=== PATIENT | male | born 1965 | race American Indian/Alaskan Native ===

== ENCOUNTER 2020-09-06 11:54 | Inpatient (IN) | payer BC, OTHER ==
[2020-09-06] MEDS ORDERED: SODIUM CHLORIDE 0.9% 500 ML INFUS.BAG IV ONE (13:05)
[2020-09-06 13:07] LABS: BASO % 0.4 % (0-2.0); EOS % 1.1 % (0-4.5); HEMATOCRIT 29.3 % (35.4-49); LYMPH % 7.8 % (8-40); MCH 21.2 pg (25.7-33.7); MCHC 30.7 g/dl (32.0-35.9); MEAN CELL VOLUME 69.2 fl (80-96); MEAN PLT VOLUME 7.1 fl (7.5-11.1); MONO % 10.1 % (3.8-10.2); NEUT % 80.6 % (42.8-82.8); PLATELET COUNT 649 K/MM3 (134-434); RBC 4.24 M/mm3 (4.00-5.60); RDW 19.6 % (11.9-15.9); WHITE BLOOD COUNT 11.3 K/mm3 (4.0-10.0)
[2020-09-06 13:33] LABS: POTASSIUM 4.1 mmol/L (3.5-5.1)
[2020-09-06 13:35] LABS: CALCIUM 9.1 mg/dL (8.5-10.1)
[2020-09-06 13:36] LABS: ALBUMIN 2.9 g/dl (3.4-5.0); BLOOD UREA NITROGEN 14.4 mg/dL (7-18)
[2020-09-06 13:40] LABS: BILIRUBIN,TOTAL 0.5 mg/dL (0.2-1); CREATININE 1.8 mg/dL (0.55-1.3); TOT PROT 6.7 g/dl (6.4-8.2)
[2020-09-06] MEDS ORDERED: SODIUM CHLORIDE 1,000 ML IV STA (13:55)
[2020-09-06 14:58] LABS: ANISOCYTOSIS 2+; OVALOCYTE 1+; TARGET CELLS 1+
[2020-09-06] MEDS ORDERED: CIPROFLOXACIN 400 MG/D5W 400 MG/200 ML IVPB IVPB ONE (16:17)
[2020-09-06] MEDS: D5-1/2NS+20 MEQ KCL - 20 MEQ/1,000 ML INFUS.BAG IV SCH (17:15)
[2020-09-06 17:18] LABS: POTASSIUM 3.7 mmol/L (3.5-5.1)
[2020-09-06 17:19] LABS: CALCIUM 8.5 mg/dL (8.5-10.1)
[2020-09-06 17:20] LABS: BLOOD UREA NITROGEN 15.1 mg/dL (7-18)
[2020-09-06] MEDS ORDERED: FLU VACCINE (FLULAVAL) PF 60 MCG/0.5 ML SYRINGE 2020-2021 IM ONE (20:36)
[2020-09-06] MEDS: PIPERACILLIN/TAZOB 3.375 GM 3.375 GM in DEXTROSE 5%-WATER - 50 ML IVPB SCH (22:22)
[2020-09-06] MEDS: HEPARIN NA (PORCINE) 5,000 UNITS/ML 1ML VIAL SQ SCH (22:23)
[2020-09-07] MEDS ORDERED: PIPERACILLIN/TAZOBACTAM 3.375 GM VIAL IVPB ONE ×3 (00:58→17:49)
[2020-09-07] MEDS ORDERED: DEXTROSE 5%-WATER - 50 ML IVPB ONE ×3 (00:59→17:49)
[2020-09-07] MEDS: PIPERACILLIN/TAZOB 3.375 GM 3.375 GM in DEXTROSE 5%-WATER - 50 ML IVPB SCH ×4 (01:06→17:52)
[2020-09-07] MEDS: D5-1/2NS+20 MEQ KCL - 20 MEQ/1,000 ML INFUS.BAG IV SCH ×4 (02:56→22:56)
[2020-09-07 08:38] LABS: BASO % 0.7 % (0-2.0); EOS % 2.6 % (0-4.5); HEMATOCRIT 24.2 % (35.4-49); HEMOGLOBIN 7.6 GM/dL (11.7-16.9); LYMPH % 14.2 % (8-40); MCH 21.4 pg (25.7-33.7); MCHC 31.5 g/dl (32.0-35.9); MEAN CELL VOLUME 67.8 fl (80-96); MEAN PLT VOLUME 7.3 fl (7.5-11.1); MONO % 11.9 % (3.8-10.2); NEUT % 70.6 % (42.8-82.8); PLATELET COUNT 494 K/MM3 (134-434); RBC 3.57 M/mm3 (4.00-5.60); WHITE BLOOD COUNT 7.6 K/mm3 (4.0-10.0)
[2020-09-07 08:52] LABS: INR 1.51 (0.83-1.09)
[2020-09-07 08:53] LABS: POTASSIUM 3.9 mmol/L (3.5-5.1)
[2020-09-07 09:00] LABS: ALBUMIN 2.4 g/dl (3.4-5.0); BLOOD UREA NITROGEN 13.9 mg/dL (7-18); CALCIUM 8.3 mg/dL (8.5-10.1); MAGNESIUM 1.9 mg/dL (1.8-2.4)
[2020-09-07 09:02] LABS: CREATININE 1.5 mg/dL (0.55-1.3); PHOSPHOROUS 3.2 mg/dL (2.5-4.9)
[2020-09-07 09:03] LABS: BILIRUBIN,TOTAL 0.6 mg/dL (0.2-1); TOT PROT 5.5 g/dl (6.4-8.2)
[2020-09-07] MEDS ORDERED: PT OWN MED DRAWER 7, Y5N ONE ×2 (09:46→10:42)
[2020-09-07] MEDS: HEPARIN NA (PORCINE) 5,000 UNITS/ML 1ML VIAL SQ SCH ×2 (10:07→21:08)
[2020-09-07] MEDS: NEBIVOLOL 10 MG TABLET (FP) PO SCH (13:08)
[2020-09-07] MEDS: PANTOPRAZOLE SODIUM 40 MG VIAL IVPUSH SCH (17:51)
[2020-09-08] MEDS ORDERED: PT OWN MED DRAWER 7, Y5N ONE (00:53)
[2020-09-08] MEDS ORDERED: DEXTROSE 5%-WATER - 50 ML IVPB ONE ×2 (00:59→09:04)
[2020-09-08] MEDS ORDERED: PIPERACILLIN/TAZOBACTAM 3.375 GM VIAL IVPB ONE ×2 (00:59→09:04)
[2020-09-08] MEDS: PIPERACILLIN/TAZOB 3.375 GM 3.375 GM in DEXTROSE 5%-WATER - 50 ML IVPB SCH ×2 (01:20→09:53)
[2020-09-08 07:56] LABS: POTASSIUM 3.6 mmol/L (3.5-5.1)
[2020-09-08 07:59] LABS: CALCIUM 8.6 mg/dL (8.5-10.1)
[2020-09-08 08:00] LABS: ALBUMIN 2.5 g/dl (3.4-5.0); BLOOD UREA NITROGEN 6.6 mg/dL (7-18)
[2020-09-08 08:03] LABS: CREATININE 1.2 mg/dL (0.55-1.3)
[2020-09-08 08:05] LABS: BILIRUBIN,TOTAL 0.5 mg/dL (0.2-1)
[2020-09-08 08:06] LABS: TOT PROT 5.9 g/dl (6.4-8.2)
[2020-09-08 08:28] LABS: BASO % 0.8 % (0-2.0); EOS % 3.1 % (0-4.5); HEMOGLOBIN 7.9 GM/dL (11.7-16.9); LYMPH % 10.4 % (8-40); MCH 21.3 pg (25.7-33.7); MCHC 31.5 g/dl (32.0-35.9); MEAN CELL VOLUME 67.6 fl (80-96); MEAN PLT VOLUME 7.6 fl (7.5-11.1); MONO % 10.1 % (3.8-10.2); NEUT % 75.6 % (42.8-82.8); PLATELET COUNT 517 K/MM3 (134-434); RBC 3.71 M/mm3 (4.00-5.60); RDW 18.9 % (11.9-15.9); WHITE BLOOD COUNT 8.6 K/mm3 (4.0-10.0)
[2020-09-08] MEDS: HYDROmorphone HCl 2 MG/ML VIAL IVPUSH PRN ×2 (09:49→21:29)
[2020-09-08] MEDS: PANTOPRAZOLE SODIUM 40 MG VIAL IVPUSH SCH (09:54)
[2020-09-08] MEDS: HEPARIN NA (PORCINE) 5,000 UNITS/ML 1ML VIAL SQ SCH ×2 (09:54→22:52)
[2020-09-08] MEDS: NEBIVOLOL 10 MG TABLET (FP) PO SCH (09:54)
[2020-09-08] MEDS ORDERED: DEXTROSE 5%-WATER 100 ML IVPB ONE (16:23)
[2020-09-08] MEDS: CEFTRIAXONE 2 GM in DEXTROSE 5%-WATER 100 ML IVPB SCH (16:28)
[2020-09-08 17:37] LABS: EPI CELLS 20 /uL (0-25.1); HYALINE CASTS 5 /uL (0-3.1); PH,URINE 5.5 (5.0-8.0); URINE APPEARANCE CLOUDY; URINE BACTERIA 33 /uL (0-1359); URINE BILIRUBIN NEGATIVE (NEGATIVE); URINE COLOR DK YELLOW; URINE GLUCOSE (UA) NEGATIVE (NEGATIVE); URINE KETONE TRACE (NEGATIVE); URINE LEUK ESTERASE 1+ (NEGATIVE); URINE NITRITE NEGATIVE (NEGATIVE); URINE PROTEIN 2+ (NEGATIVE); URINE RBC 36 /uL (0-23.9); URINE UROBILINOGEN 0.2 mg/dL (0.2-1.0); URINE WBC 15 /uL (0-25.8)
[2020-09-08] MEDS: D5-1/2NS+20 MEQ KCL - 20 MEQ/1,000 ML INFUS.BAG IV SCH ×2 (19:34→22:31)
[2020-09-09] MEDS: HYDROmorphone HCl 2 MG/ML VIAL IVPUSH PRN ×2 (07:30→15:13)
[2020-09-09 08:11] LABS: BASO % 0.8 % (0-2.0); EOS % 2.7 % (0-4.5); HEMATOCRIT 25.3 % (35.4-49); HEMOGLOBIN 7.8 GM/dL (11.7-16.9); LYMPH % 16.4 % (8-40); MCHC 30.8 g/dl (32.0-35.9); MEAN CELL VOLUME 68.4 fl (80-96); MEAN PLT VOLUME 7.7 fl (7.5-11.1); MONO % 12.3 % (3.8-10.2); NEUT % 67.8 % (42.8-82.8); PLATELET COUNT 528 K/MM3 (134-434); RDW 19.1 % (11.9-15.9); WHITE BLOOD COUNT 8.3 K/mm3 (4.0-10.0)
[2020-09-09] MEDS ORDERED: DEXTROSE 5%-WATER 100 ML IVPB ONE (09:18)
[2020-09-09] MEDS ORDERED: PT OWN MED DRAWER 7, Y5N ONE (09:18)
[2020-09-09] MEDS: CEFTRIAXONE 2 GM in DEXTROSE 5%-WATER 100 ML IVPB SCH (09:29)
[2020-09-09] MEDS: HEPARIN NA (PORCINE) 5,000 UNITS/ML 1ML VIAL SQ SCH ×2 (09:29→22:30)
[2020-09-09] MEDS: NEBIVOLOL 10 MG TABLET (FP) PO SCH (09:29)
[2020-09-09] MEDS: PANTOPRAZOLE SODIUM 40 MG VIAL IVPUSH SCH (09:29)
[2020-09-09 10:15] LABS: POTASSIUM 3.8 mmol/L (3.5-5.1)
[2020-09-09 10:24] LABS: CALCIUM 8.8 mg/dL (8.5-10.1)
[2020-09-09 10:25] LABS: ALBUMIN 2.3 g/dl (3.4-5.0)
[2020-09-09 10:28] LABS: CREATININE 1.2 mg/dL (0.55-1.3)
[2020-09-09 10:29] LABS: BILIRUBIN,TOTAL 0.5 mg/dL (0.2-1)
[2020-09-09 10:30] LABS: TOT PROT 5.7 g/dl (6.4-8.2)
[2020-09-09] MEDS: D5-1/2NS+20 MEQ KCL - 20 MEQ/1,000 ML INFUS.BAG IV SCH (18:19)
[2020-09-09] MEDS ORDERED: HYDROmorphone HCl 2 MG/ML VIAL IVPUSH PRN (22:39)
[2020-09-09] MEDS: HYDROmorphone HCl 2 MG/ML VIAL IVPB PRN (22:43)
[2020-09-10] MEDS: D5-1/2NS+20 MEQ KCL - 20 MEQ/1,000 ML INFUS.BAG IV SCH ×2 (01:45→17:33)
[2020-09-10] MEDS: HYDROmorphone HCl 2 MG/ML VIAL IVPB PRN ×4 (07:34→21:46)
[2020-09-10 08:20] LABS: BASO % 0.7 % (0-2.0); EOS % 2.5 % (0-4.5); HEMATOCRIT 24.6 % (35.4-49); HEMOGLOBIN 7.6 GM/dL (11.7-16.9); LYMPH % 9.2 % (8-40); MCH 20.8 pg (25.7-33.7); MEAN CELL VOLUME 67.2 fl (80-96); MEAN PLT VOLUME 7.7 fl (7.5-11.1); MONO % 11.3 % (3.8-10.2); NEUT % 76.3 % (42.8-82.8); PLATELET COUNT 469 K/MM3 (134-434); RBC 3.66 M/mm3 (4.00-5.60); RDW 19.3 % (11.9-15.9); WHITE BLOOD COUNT 7.4 K/mm3 (4.0-10.0)
[2020-09-10 08:25] LABS: POTASSIUM 4.4 mmol/L (3.5-5.1)
[2020-09-10 08:28] LABS: ALBUMIN 2.2 g/dl (3.4-5.0); BLOOD UREA NITROGEN 3.7 mg/dL (7-18); CALCIUM 8.5 mg/dL (8.5-10.1)
[2020-09-10 08:33] LABS: BILIRUBIN,TOTAL 0.2 mg/dL (0.2-1); TOT PROT 5.5 g/dl (6.4-8.2)
[2020-09-10] MEDS ORDERED: PT OWN MED DRAWER 7, Y5N ONE (09:24)
[2020-09-10] MEDS ORDERED: DEXTROSE 5%-WATER 100 ML IVPB ONE (09:25)
[2020-09-10] MEDS: HEPARIN NA (PORCINE) 5,000 UNITS/ML 1ML VIAL SQ SCH ×2 (09:31→21:43)
[2020-09-10] MEDS: NEBIVOLOL 10 MG TABLET (FP) PO SCH (09:31)
[2020-09-10] MEDS: CEFTRIAXONE 2 GM in DEXTROSE 5%-WATER 100 ML IVPB SCH (09:31)
[2020-09-10] MEDS: PANTOPRAZOLE SODIUM 40 MG VIAL IVPUSH SCH (09:31)
[2020-09-10] MEDS: SIMETHICONE 80 MG TAB.CHEW (FP) PO PRN ×2 (09:32→17:45)
[2020-09-10 10:48] LABS: ANISOCYTOSIS 1+; MACROCYTOSIS 0; OVALOCYTE 1+; PLATELET ESTIMATE NORMAL
[2020-09-10 11:51] LABS: INR 1.8 (0.83-1.09); PROTHROMBIN TIME (PATIENT) 21.8 SEC (9.7-13.0)
[2020-09-10] MEDS ORDERED: FERRIC CARBOXYMALTOSE 750 MG in SODIUM CHLORIDE 250 ML IVPB ONE (15:44)
[2020-09-11] MEDS ORDERED: HYDROmorphone HCl 2 MG/ML VIAL IVPB ONE (04:37)
[2020-09-11] MEDS: D5-1/2NS+20 MEQ KCL - 20 MEQ/1,000 ML INFUS.BAG IV SCH (04:45)
[2020-09-11] MEDS ORDERED: DEXTROSE 5%-WATER 100 ML IVPB ONE (09:05)
[2020-09-11] MEDS: NEBIVOLOL 10 MG TABLET (FP) PO SCH (09:18)
[2020-09-11] MEDS: FERROUS SO4 325 MG TABLET (FP) PO SCH (09:18)
[2020-09-11] MEDS: HEPARIN NA (PORCINE) 5,000 UNITS/ML 1ML VIAL SQ SCH ×2 (10:14→22:09)
[2020-09-11] MEDS: CEFTRIAXONE 2 GM in DEXTROSE 5%-WATER 100 ML IVPB SCH (10:14)
[2020-09-11 11:18] LABS: BASO % 0.7 % (0-2.0); EOS % 1.7 % (0-4.5); HEMATOCRIT 24.7 % (35.4-49); HEMOGLOBIN 7.8 GM/dL (11.7-16.9); LYMPH % 7.6 % (8-40); MCH 21.4 pg (25.7-33.7); MCHC 31.6 g/dl (32.0-35.9); MEAN CELL VOLUME 67.6 fl (80-96); MEAN PLT VOLUME 7.7 fl (7.5-11.1); MONO % 10.8 % (3.8-10.2); NEUT % 79.2 % (42.8-82.8); PLATELET COUNT 491 K/MM3 (134-434); RBC 3.65 M/mm3 (4.00-5.60); WHITE BLOOD COUNT 9.5 K/mm3 (4.0-10.0)
[2020-09-11 11:29] LABS: POTASSIUM 3.9 mmol/L (3.5-5.1)
[2020-09-11 11:31] LABS: CALCIUM 8.5 mg/dL (8.5-10.1)
[2020-09-11 11:32] LABS: ALBUMIN 2.3 g/dl (3.4-5.0)
[2020-09-11 11:37] LABS: BILIRUBIN,TOTAL 0.1 mg/dL (0.2-1); TOT PROT 5.5 g/dl (6.4-8.2)
[2020-09-11 11:45] LABS: BLOOD UREA NITROGEN 2.4 mg/dL (7-18)
[2020-09-11] MEDS: PANTOPRAZOLE SODIUM 40 MG VIAL IVPUSH SCH (12:04)
[2020-09-11] MEDS: HYDROmorphone HCl 2 MG/ML VIAL IVPB PRN ×3 (12:06→22:08)
[2020-09-11] MEDS: SIMETHICONE 80 MG TAB.CHEW (FP) PO SCH ×2 (12:09→18:03)
[2020-09-11] MEDS: AMINO ACIDS 4.25%/D5W 1,000 ML IV SCH ×2 (12:09→22:20)
[2020-09-11] MEDS: MULTIVIT INJ. ADULT COMBO WITH VIT K 1 COMBO 10 ML VIAL IV SCH (12:10)
[2020-09-11] MEDS ORDERED: ACETAMINOPHEN 325 MG TABLET (FP) PO PRN (15:02)
[2020-09-11] MEDS ORDERED: PHYTONADIONE 10 MG/1 ML AMP IM ONE (16:09)
[2020-09-12] MEDS: SIMETHICONE 80 MG TAB.CHEW (FP) PO SCH ×5 (00:59→23:41)
[2020-09-12] MEDS: HYDROmorphone HCl 2 MG/ML VIAL IVPB PRN ×3 (02:03→11:34)
[2020-09-12] MEDS: AMINO ACIDS 4.25%/D5W 1,000 ML IV SCH ×2 (03:00→11:18)
[2020-09-12 08:51] LABS: EOS % 2.4 % (0-4.5); HEMOGLOBIN 7.6 GM/dL (11.7-16.9); LYMPH % 9.1 % (8-40); MCH 21.6 pg (25.7-33.7); MCHC 31.8 g/dl (32.0-35.9); MEAN CELL VOLUME 67.9 fl (80-96); MEAN PLT VOLUME 7.9 fl (7.5-11.1); MONO % 12.4 % (3.8-10.2); NEUT % 75.1 % (42.8-82.8); PLATELET COUNT 462 K/MM3 (134-434); RBC 3.53 M/mm3 (4.00-5.60); RDW 19.3 % (11.9-15.9); WHITE BLOOD COUNT 9.4 K/mm3 (4.0-10.0)
[2020-09-12 09:14] LABS: POTASSIUM 3.4 mmol/L (3.5-5.1)
[2020-09-12 09:17] LABS: CALCIUM 7.9 mg/dL (8.5-10.1)
[2020-09-12 09:18] LABS: ALBUMIN 2.1 g/dl (3.4-5.0); BLOOD UREA NITROGEN 4.9 mg/dL (7-18)
[2020-09-12 09:21] LABS: CREATININE 0.9 mg/dL (0.55-1.3)
[2020-09-12 09:22] LABS: BILIRUBIN,TOTAL 0.2 mg/dL (0.2-1); TOT PROT 5.2 g/dl (6.4-8.2)
[2020-09-12] MEDS ORDERED: PHYTONADIONE 5 MG TABLET PO ONE (09:26)
[2020-09-12] MEDS ORDERED: POTASSIUM CHLORIDE TABS 20 MEQ TABLET.ER (FP) PO ONE (09:30)
[2020-09-12] MEDS ORDERED: DEXTROSE 5%-WATER 100 ML IVPB ONE (10:55)
[2020-09-12] MEDS: HEPARIN NA (PORCINE) 5,000 UNITS/ML 1ML VIAL SQ SCH ×2 (11:06→21:31)
[2020-09-12] MEDS: PANTOPRAZOLE SODIUM 40 MG VIAL IVPUSH SCH ×2 (11:07→21:32)
[2020-09-12] MEDS: CEFTRIAXONE 2 GM in DEXTROSE 5%-WATER 100 ML IVPB SCH (11:07)
[2020-09-12] MEDS ORDERED: PT OWN MED DRAWER 7, Y5N ONE (11:10)
[2020-09-12] MEDS: MULTIVIT INJ. ADULT COMBO WITH VIT K 1 COMBO 10 ML VIAL IV SCH (11:18)
[2020-09-12] MEDS: FERROUS SO4 325 MG TABLET (FP) PO SCH (11:18)
[2020-09-12] MEDS: NEBIVOLOL 10 MG TABLET (FP) PO SCH (11:19)
[2020-09-12] MEDS ORDERED: ACETAMINOPHEN 1000 MG/100 ML VIAL (NON FORMULARY) IVPB PRN (13:35)
[2020-09-12] MEDS: MORPHINE SULFATE 2 MG/ML VIAL IVPUSH PRN ×3 (13:48→22:09)
[2020-09-12] MEDS: POTASSIUM CHLORIDE 20 MEQ in AMINO ACIDS 4.25%/D5W 1,000 ML IVPB SCH (17:45)
[2020-09-13] MEDS: MORPHINE SULFATE 2 MG/ML VIAL IVPUSH PRN ×2 (03:51→10:29)
[2020-09-13] MEDS: POTASSIUM CHLORIDE 20 MEQ in AMINO ACIDS 4.25%/D5W 1,000 ML IVPB SCH ×2 (05:02→20:14)
[2020-09-13] MEDS: SIMETHICONE 80 MG TAB.CHEW (FP) PO SCH ×3 (05:03→18:01)
[2020-09-13 09:39] LABS: BASO % 0.7 % (0-2.0); EOS % 3.3 % (0-4.5); HEMATOCRIT 25.1 % (35.4-49); HEMOGLOBIN 7.8 GM/dL (11.7-16.9); LYMPH % 9.7 % (8-40); MCH 21.4 pg (25.7-33.7); MEAN CELL VOLUME 69.1 fl (80-96); MONO % 11.2 % (3.8-10.2); NEUT % 75.1 % (42.8-82.8); PLATELET COUNT 468 K/MM3 (134-434); RBC 3.63 M/mm3 (4.00-5.60); RDW 19.2 % (11.9-15.9); WHITE BLOOD COUNT 10.6 K/mm3 (4.0-10.0)
[2020-09-13] MEDS ORDERED: ACETAMINOPHEN 1000 MG/100 ML VIAL (NON FORMULARY) IVPB PRN (09:40)
[2020-09-13 09:49] LABS: INR 1.73 (0.83-1.09); PROTHROMBIN TIME (PATIENT) 20.6 SEC (9.7-13.0)
[2020-09-13] MEDS ORDERED: DEXTROSE 5%-WATER 100 ML IVPB ONE (10:01)
[2020-09-13] MEDS: FERROUS SO4 325 MG TABLET (FP) PO SCH (10:06)
[2020-09-13] MEDS: HEPARIN NA (PORCINE) 5,000 UNITS/ML 1ML VIAL SQ SCH ×2 (10:07→21:59)
[2020-09-13] MEDS: MULTIVIT INJ. ADULT COMBO WITH VIT K 1 COMBO 10 ML VIAL IV SCH (10:09)
[2020-09-13] MEDS: PANTOPRAZOLE SODIUM 40 MG VIAL IVPUSH SCH ×2 (10:13→21:59)
[2020-09-13] MEDS: CEFTRIAXONE 2 GM in DEXTROSE 5%-WATER 100 ML IVPB SCH (10:19)
[2020-09-13 10:30] LABS: POTASSIUM 3.5 mmol/L (3.5-5.1)
[2020-09-13 10:32] LABS: ALBUMIN 2.2 g/dl (3.4-5.0); BLOOD UREA NITROGEN 8.4 mg/dL (7-18); CALCIUM 8.1 mg/dL (8.5-10.1)
[2020-09-13 10:35] LABS: CREATININE 0.9 mg/dL (0.55-1.3)
[2020-09-13 10:37] LABS: TOT PROT 5.4 g/dl (6.4-8.2)
[2020-09-13 10:45] LABS: BILIRUBIN,TOTAL 0.2 mg/dL (0.2-1)
[2020-09-13 11:06] LABS: ANISOCYTOSIS 2+; MACROCYTOSIS 0; PLATELET ESTIMATE INCREASED
[2020-09-13] MEDS: NEBIVOLOL 10 MG TABLET (FP) PO SCH (12:32)
[2020-09-13] MEDS: morphine SULFATE 4 MG/ML VIAL IVPUSH PRN ×3 (13:42→21:59)
[2020-09-14] MEDS: SIMETHICONE 80 MG TAB.CHEW (FP) PO SCH ×5 (00:01→23:08)
[2020-09-14] MEDS: POTASSIUM CHLORIDE 20 MEQ in AMINO ACIDS 4.25%/D5W 1,000 ML IVPB SCH ×4 (02:21→23:08)
[2020-09-14] MEDS: morphine SULFATE 4 MG/ML VIAL IVPUSH PRN ×4 (03:28→20:08)
[2020-09-14 08:18] LABS: BASO % 1.1 % (0-2.0); EOS % 3.2 % (0-4.5); HEMATOCRIT 26.5 % (35.4-49); HEMOGLOBIN 8.2 GM/dL (11.7-16.9); LYMPH % 8.7 % (8-40); MCH 21.5 pg (25.7-33.7); MEAN CELL VOLUME 69.6 fl (80-96); MEAN PLT VOLUME 7.8 fl (7.5-11.1); PLATELET COUNT 528 K/MM3 (134-434); RDW 19.8 % (11.9-15.9); WHITE BLOOD COUNT 10.8 K/mm3 (4.0-10.0)
[2020-09-14 08:21] LABS: INR 1.57 (0.83-1.09); PROTHROMBIN TIME (PATIENT) 19.1 SEC (9.7-13.0)
[2020-09-14 08:23] LABS: ACTIVATED PTT 26.4 SECONDS (25.2-36.5)
[2020-09-14 08:41] LABS: POTASSIUM 3.9 mmol/L (3.5-5.1)
[2020-09-14 08:45] LABS: ALBUMIN 2.1 g/dl (3.4-5.0); BLOOD UREA NITROGEN 12.1 mg/dL (7-18); CALCIUM 8.3 mg/dL (8.5-10.1)
[2020-09-14 08:48] LABS: CREATININE 1.1 mg/dL (0.55-1.3)
[2020-09-14 08:50] LABS: BILIRUBIN,TOTAL 0.4 mg/dL (0.2-1); TOT PROT 5.4 g/dl (6.4-8.2)
[2020-09-14] MEDS ORDERED: DEXTROSE 5%-WATER 100 ML IVPB ONE (09:34)
[2020-09-14] MEDS: CEFTRIAXONE 2 GM in DEXTROSE 5%-WATER 100 ML IVPB SCH (09:47)
[2020-09-14] MEDS: PANTOPRAZOLE SODIUM 40 MG VIAL IVPUSH SCH ×2 (09:51→21:25)
[2020-09-14] MEDS: MULTIVIT INJ. ADULT COMBO WITH VIT K 1 COMBO 10 ML VIAL IV SCH (09:52)
[2020-09-14] MEDS: HEPARIN NA (PORCINE) 5,000 UNITS/ML 1ML VIAL SQ SCH (09:56)
[2020-09-14] MEDS: FERROUS SO4 325 MG TABLET (FP) PO SCH (09:56)
[2020-09-14] MEDS: NEBIVOLOL 10 MG TABLET (FP) PO SCH (09:57)
[2020-09-14 12:22] LABS: ANISOCYTOSIS 2+
[2020-09-14] MEDS: DICYCLOMINE HCL 10 MG CAPSULE PO SCH ×2 (17:06→21:25)
[2020-09-15] MEDS: morphine SULFATE 4 MG/ML VIAL IVPUSH PRN ×4 (01:08→20:32)
[2020-09-15] MEDS: POTASSIUM CHLORIDE 20 MEQ in AMINO ACIDS 4.25%/D5W 1,000 ML IVPB SCH ×2 (01:44→13:05)
[2020-09-15] MEDS: SIMETHICONE 80 MG TAB.CHEW (FP) PO SCH ×3 (05:08→17:35)
[2020-09-15] MEDS: MORPHINE SULFATE 2 MG/ML VIAL IVPUSH PRN ×2 (08:13→17:36)
[2020-09-15 08:41] LABS: BASO % 0.6 % (0-2.0); EOS % 4.2 % (0-4.5); HEMATOCRIT 25.2 % (35.4-49); LYMPH % 11.3 % (8-40); MCH 22.3 pg (25.7-33.7); MCHC 31.6 g/dl (32.0-35.9); MEAN CELL VOLUME 70.8 fl (80-96); MONO % 13.7 % (3.8-10.2); NEUT % 70.2 % (42.8-82.8); PLATELET COUNT 515 K/MM3 (134-434); RBC 3.57 M/mm3 (4.00-5.60); RDW 19.6 % (11.9-15.9); WHITE BLOOD COUNT 11.3 K/mm3 (4.0-10.0)
[2020-09-15 08:45] LABS: POTASSIUM 3.5 mmol/L (3.5-5.1)
[2020-09-15] MEDS ORDERED: SODIUM PHOSPHATE/NA BIPHOS 133 ML ENEMA RC ONE (09:00)
[2020-09-15 09:03] LABS: CALCIUM 8.1 mg/dL (8.5-10.1)
[2020-09-15 09:04] LABS: BLOOD UREA NITROGEN 15.5 mg/dL (7-18)
[2020-09-15 09:06] LABS: CREATININE 1.1 mg/dL (0.55-1.3)
[2020-09-15 09:08] LABS: BILIRUBIN,TOTAL 0.8 mg/dL (0.2-1); TOT PROT 5.2 g/dl (6.4-8.2)
[2020-09-15] MEDS ORDERED: PT OWN MED DRAWER 7, Y5N ONE ×3 (09:25→21:26)
[2020-09-15] MEDS ORDERED: DEXTROSE 5%-WATER 100 ML IVPB ONE (09:26)
[2020-09-15] MEDS: FERROUS SO4 325 MG TABLET (FP) PO SCH (09:30)
[2020-09-15] MEDS: DICYCLOMINE HCL 10 MG CAPSULE PO SCH ×2 (09:30→21:38)
[2020-09-15] MEDS: CEFTRIAXONE 2 GM in DEXTROSE 5%-WATER 100 ML IVPB SCH (09:31)
[2020-09-15] MEDS: PANTOPRAZOLE SODIUM 40 MG VIAL IVPUSH SCH ×2 (09:32→21:38)
[2020-09-15] MEDS: NEBIVOLOL 10 MG TABLET (FP) PO SCH (09:32)
[2020-09-15] MEDS: MULTIVIT INJ. ADULT COMBO WITH VIT K 1 COMBO 10 ML VIAL IV SCH (13:06)
[2020-09-15] MEDS ORDERED: PHYTONADIONE 10 MG/1 ML AMP SQ ONE (14:15)
[2020-09-15] MEDS ORDERED: IRON SUCROSE INJECTION 300 MG in SODIUM CHLORIDE 235 ML IVPB ONE (15:00)
[2020-09-15] MEDS: VANCOMYCIN 250 MG/5 ML ORAL SOLUTION PO SCH (17:35)
[2020-09-15] MEDS: HEPARIN NA (PORCINE) 5,000 UNITS/ML 1ML VIAL SQ SCH (22:27)
[2020-09-16] MEDS: VANCOMYCIN 250 MG/5 ML ORAL SOLUTION PO SCH ×4 (00:39→17:15)
[2020-09-16] MEDS: SIMETHICONE 80 MG TAB.CHEW (FP) PO SCH ×4 (00:40→17:16)
[2020-09-16] MEDS: morphine SULFATE 4 MG/ML VIAL IVPUSH PRN ×6 (00:52→21:29)
[2020-09-16] MEDS: POTASSIUM CHLORIDE 20 MEQ in AMINO ACIDS 4.25%/D5W 1,000 ML IVPB SCH ×3 (02:54→21:09)
[2020-09-16 08:20] LABS: HEMATOCRIT 25.4 % (35.4-49); LYMPH % 8.5 % (8-40); MCH 22.1 pg (25.7-33.7); MCHC 31.5 g/dl (32.0-35.9); MEAN CELL VOLUME 70.2 fl (80-96); MEAN PLT VOLUME 7.7 fl (7.5-11.1); MONO % 12.7 % (3.8-10.2); NEUT % 72.8 % (42.8-82.8); PLATELET COUNT 535 K/MM3 (134-434); RBC 3.61 M/mm3 (4.00-5.60); RDW 20.7 % (11.9-15.9); WHITE BLOOD COUNT 10.6 K/mm3 (4.0-10.0)
[2020-09-16 08:33] LABS: INR 1.67 (0.83-1.09); PROTHROMBIN TIME (PATIENT) 20.2 SEC (9.7-13.0)
[2020-09-16 08:53] LABS: POTASSIUM 3.3 mmol/L (3.5-5.1)
[2020-09-16 08:56] LABS: CALCIUM 8.2 mg/dL (8.5-10.1)
[2020-09-16 09:00] LABS: CREATININE 0.9 mg/dL (0.55-1.3)
[2020-09-16 09:01] LABS: BILIRUBIN,TOTAL 0.6 mg/dL (0.2-1); TOT PROT 5.2 g/dl (6.4-8.2)
[2020-09-16] MEDS ORDERED: PT OWN MED DRAWER 7, Y5N ONE ×2 (09:01→21:17)
[2020-09-16] MEDS: PANTOPRAZOLE SODIUM 40 MG VIAL IVPUSH SCH ×2 (09:05→22:00)
[2020-09-16] MEDS: FERROUS SO4 325 MG TABLET (FP) PO SCH (09:06)
[2020-09-16] MEDS: HEPARIN NA (PORCINE) 5,000 UNITS/ML 1ML VIAL SQ SCH ×2 (09:06→21:28)
[2020-09-16] MEDS: MULTIVIT INJ. ADULT COMBO WITH VIT K 1 COMBO 10 ML VIAL IV SCH (09:09)
[2020-09-16] MEDS: NEBIVOLOL 10 MG TABLET (FP) PO SCH (09:31)
[2020-09-16] MEDS: DICYCLOMINE HCL 10 MG CAPSULE PO SCH ×2 (09:31→21:27)
[2020-09-16] MEDS ORDERED: MORPHINE SULFATE 2 MG/ML VIAL IVPUSH PRN (10:46)
[2020-09-16] MEDS ORDERED: ACETAMINOPHEN 1000 MG/100 ML VIAL (NON FORMULARY) IVPB PRN (10:46)
[2020-09-16] MEDS ORDERED: IRON SUCROSE INJECTION 300 MG in SODIUM CHLORIDE 235 ML IVPB ONE (11:00)
[2020-09-16] MEDS: POTASSIUM CHLORIDE TABS 20 MEQ TABLET.ER (FP) PO SCH (12:02)
[2020-09-17] MEDS: VANCOMYCIN 250 MG/5 ML ORAL SOLUTION PO SCH ×4 (00:05→18:10)
[2020-09-17] MEDS: SIMETHICONE 80 MG TAB.CHEW (FP) PO SCH ×4 (00:05→18:11)
[2020-09-17] MEDS: POTASSIUM CHLORIDE 20 MEQ in AMINO ACIDS 4.25%/D5W 1,000 ML IVPB SCH ×2 (02:05→13:30)
[2020-09-17] MEDS: morphine SULFATE 4 MG/ML VIAL IVPUSH PRN ×3 (03:57→18:11)
[2020-09-17 08:25] LABS: BASO % 0.8 % (0-2.0); HEMATOCRIT 25.3 % (35.4-49); HEMOGLOBIN 8.1 GM/dL (11.7-16.9); LYMPH % 11.9 % (8-40); MCH 22.8 pg (25.7-33.7); MCHC 31.9 g/dl (32.0-35.9); MEAN CELL VOLUME 71.5 fl (80-96); MEAN PLT VOLUME 7.8 fl (7.5-11.1); MONO % 13.9 % (3.8-10.2); NEUT % 67.4 % (42.8-82.8); PLATELET COUNT 575 K/MM3 (134-434); RBC 3.55 M/mm3 (4.00-5.60); RDW 22.2 % (11.9-15.9); WHITE BLOOD COUNT 9.4 K/mm3 (4.0-10.0)
[2020-09-17 08:52] LABS: POTASSIUM 3.3 mmol/L (3.5-5.1)
[2020-09-17 09:01] LABS: CALCIUM 8.2 mg/dL (8.5-10.1)
[2020-09-17 09:02] LABS: BLOOD UREA NITROGEN 15.3 mg/dL (7-18)
[2020-09-17 09:05] LABS: CREATININE 1.1 mg/dL (0.55-1.3)
[2020-09-17 09:06] LABS: BILIRUBIN,TOTAL 0.2 mg/dL (0.2-1)
[2020-09-17 09:07] LABS: TOT PROT 5.4 g/dl (6.4-8.2)
[2020-09-17 09:25] LABS: ANISOCYTOSIS 3+; MACROCYTOSIS 0; PLATELET ESTIMATE INCREASED; TARGET CELLS 1+; TEAR DROP CELLS 1+
[2020-09-17] MEDS: FERROUS SO4 325 MG TABLET (FP) PO SCH (09:28)
[2020-09-17] MEDS: PANTOPRAZOLE SODIUM 40 MG VIAL IVPUSH SCH ×2 (09:28→22:13)
[2020-09-17] MEDS: POTASSIUM CHLORIDE TABS 20 MEQ TABLET.ER (FP) PO SCH (09:28)
[2020-09-17] MEDS ORDERED: PT OWN MED DRAWER 7, Y5N ONE ×2 (09:35→22:16)
[2020-09-17] MEDS: DICYCLOMINE HCL 10 MG CAPSULE PO SCH ×2 (09:38→22:16)
[2020-09-17] MEDS: NEBIVOLOL 10 MG TABLET (FP) PO SCH (09:38)
[2020-09-17] MEDS: HEPARIN NA (PORCINE) 5,000 UNITS/ML 1ML VIAL SQ SCH (09:40)
[2020-09-17] MEDS: MULTIVIT INJ. ADULT COMBO WITH VIT K 1 COMBO 10 ML VIAL IV SCH (12:33)
[2020-09-17] MEDS ORDERED: POTASSIUM CHLORIDE TABS 10 MEQ TABLET.ER (FP) PO ONE (14:03)
[2020-09-17] MEDS ORDERED: ENOXAPARIN NA (PORCINE) 120 MG/0.8 ML DISP.SYRIN SQ SCH (22:00)
[2020-09-17] MEDS: SUCRALFATE 1 GM/10 ML UNIT DOSE CUPS PO SCH (22:14)
[2020-09-18] MEDS: VANCOMYCIN 250 MG/5 ML ORAL SOLUTION PO SCH ×4 (00:23→18:23)
[2020-09-18] MEDS: SIMETHICONE 80 MG TAB.CHEW (FP) PO SCH ×4 (00:23→18:23)
[2020-09-18] MEDS: morphine SULFATE 4 MG/ML VIAL IVPUSH PRN (03:04)
[2020-09-18 08:36] LABS: BASO % 0.9 % (0-2.0); EOS % 5.7 % (0-4.5); HEMATOCRIT 26.7 % (35.4-49); HEMOGLOBIN 8.7 GM/dL (11.7-16.9); LYMPH % 12.2 % (8-40); MCH 23.5 pg (25.7-33.7); MCHC 32.5 g/dl (32.0-35.9); MEAN CELL VOLUME 72.5 fl (80-96); MONO % 13.1 % (3.8-10.2); NEUT % 68.1 % (42.8-82.8); PLATELET COUNT 676 K/MM3 (134-434); RBC 3.68 M/mm3 (4.00-5.60); RDW 22.5 % (11.9-15.9); WHITE BLOOD COUNT 10.6 K/mm3 (4.0-10.0)
[2020-09-18 08:54] LABS: POTASSIUM 3.6 mmol/L (3.5-5.1)
[2020-09-18 08:57] LABS: ALBUMIN 2.2 g/dl (3.4-5.0); BLOOD UREA NITROGEN 13.2 mg/dL (7-18); CALCIUM 8.4 mg/dL (8.5-10.1)
[2020-09-18 09:01] LABS: CREATININE 1.2 mg/dL (0.55-1.3)
[2020-09-18 09:02] LABS: BILIRUBIN,TOTAL 0.3 mg/dL (0.2-1); TOT PROT 5.6 g/dl (6.4-8.2)
[2020-09-18] MEDS ORDERED: PT OWN MED DRAWER 7, Y5N ONE (09:32)
[2020-09-18] MEDS: PANTOPRAZOLE SODIUM 40 MG VIAL IVPUSH SCH ×2 (09:49→21:50)
[2020-09-18] MEDS: DICYCLOMINE HCL 10 MG CAPSULE PO SCH ×2 (09:49→21:58)
[2020-09-18] MEDS: FERROUS SO4 325 MG TABLET (FP) PO SCH (09:49)
[2020-09-18] MEDS: POTASSIUM CHLORIDE TABS 20 MEQ TABLET.ER (FP) PO SCH (09:49)
[2020-09-18] MEDS: NEBIVOLOL 10 MG TABLET (FP) PO SCH (09:49)
[2020-09-18] MEDS: SUCRALFATE 1 GM/10 ML UNIT DOSE CUPS PO SCH ×4 (09:50→21:54)
[2020-09-18] MEDS: APIXABAN 5 MG TABLET PO SCH ×2 (09:50→21:54)
[2020-09-18] MEDS ORDERED: APIXABAN 5 MG TABLET PO SCH (10:00)
[2020-09-18] MEDS: MULTIVIT INJ. ADULT COMBO WITH VIT K 1 COMBO 10 ML VIAL IV SCH (11:39)
[2020-09-18] MEDS ORDERED: ACETAMINOPHEN 325 MG TABLET (FP) PO PRN (13:04)
[2020-09-18] MEDS: predniSONE 20 MG TABLET (UD) PO ONE ×2 (15:07→16:14)
[2020-09-18] MEDS: methylPREDNISolone NA SUCC 40 MG/1 ML VIAL IVPUSH SCH (16:15)
[2020-09-19] MEDS: VANCOMYCIN 250 MG/5 ML ORAL SOLUTION PO SCH ×5 (00:56→23:02)
[2020-09-19] MEDS: SIMETHICONE 80 MG TAB.CHEW (FP) PO SCH ×5 (00:57→23:02)
[2020-09-19 08:27] LABS: BASO % 0.3 % (0-2.0); EOS % 0.2 % (0-4.5); HEMATOCRIT 26.8 % (35.4-49); HEMOGLOBIN 8.3 GM/dL (11.7-16.9); LYMPH % 8.1 % (8-40); MCH 22.8 pg (25.7-33.7); MEAN CELL VOLUME 73.5 fl (80-96); MONO % 10.3 % (3.8-10.2); NEUT % 81.1 % (42.8-82.8); PLATELET COUNT 743 K/MM3 (134-434); RBC 3.65 M/mm3 (4.00-5.60); RDW 25.6 % (11.9-15.9); WHITE BLOOD COUNT 11.7 K/mm3 (4.0-10.0)
[2020-09-19 08:39] LABS: POTASSIUM 4.1 mmol/L (3.5-5.1)
[2020-09-19 08:52] LABS: ALBUMIN 2.1 g/dl (3.4-5.0); CALCIUM 8.2 mg/dL (8.5-10.1)
[2020-09-19 08:53] LABS: BLOOD UREA NITROGEN 17.3 mg/dL (7-18)
[2020-09-19 08:56] LABS: CREATININE 1.2 mg/dL (0.55-1.3)
[2020-09-19 08:57] LABS: BILIRUBIN,TOTAL 0.2 mg/dL (0.2-1)
[2020-09-19] MEDS: SUCRALFATE 1 GM/10 ML UNIT DOSE CUPS PO SCH ×4 (09:07→21:23)
[2020-09-19] MEDS: methylPREDNISolone NA SUCC 40 MG/1 ML VIAL IVPUSH SCH (09:08)
[2020-09-19] MEDS: FERROUS SO4 325 MG TABLET (FP) PO SCH (09:08)
[2020-09-19] MEDS: PANTOPRAZOLE SODIUM 40 MG VIAL IVPUSH SCH ×2 (09:08→21:23)
[2020-09-19] MEDS: POTASSIUM CHLORIDE TABS 20 MEQ TABLET.ER (FP) PO SCH (09:08)
[2020-09-19] MEDS: APIXABAN 5 MG TABLET PO SCH ×2 (09:14→21:22)
[2020-09-19] MEDS: NEBIVOLOL 10 MG TABLET (FP) PO SCH (09:14)
[2020-09-19] MEDS: DICYCLOMINE HCL 10 MG CAPSULE PO SCH ×2 (09:14→21:24)
[2020-09-20] MEDS: VANCOMYCIN 250 MG/5 ML ORAL SOLUTION PO SCH ×3 (06:32→17:02)
[2020-09-20] MEDS: SIMETHICONE 80 MG TAB.CHEW (FP) PO SCH ×3 (06:32→17:02)
[2020-09-20 07:48] LABS: BASO % 0.4 % (0-2.0); EOS % 0.6 % (0-4.5); HEMATOCRIT 25.1 % (35.4-49); HEMOGLOBIN 7.9 GM/dL (11.7-16.9); LYMPH % 14.8 % (8-40); MCH 23.3 pg (25.7-33.7); MCHC 31.5 g/dl (32.0-35.9); MEAN CELL VOLUME 73.8 fl (80-96); MONO % 13.6 % (3.8-10.2); NEUT % 70.6 % (42.8-82.8); PLATELET COUNT 719 K/MM3 (134-434); RDW 28.8 % (11.9-15.9); WHITE BLOOD COUNT 9.8 K/mm3 (4.0-10.0)
[2020-09-20 08:28] LABS: POTASSIUM 3.7 mmol/L (3.5-5.1)
[2020-09-20 09:08] LABS: ALBUMIN 2.2 g/dl (3.4-5.0); BLOOD UREA NITROGEN 23.8 mg/dL (7-18); CALCIUM 8.4 mg/dL (8.5-10.1)
[2020-09-20 09:11] LABS: CREATININE 1.3 mg/dL (0.55-1.3)
[2020-09-20 09:13] LABS: BILIRUBIN,TOTAL 0.3 mg/dL (0.2-1); TOT PROT 5.6 g/dl (6.4-8.2)
[2020-09-20] MEDS ORDERED: PT OWN MED DRAWER 7, Y5N ONE ×2 (09:17→21:37)
[2020-09-20] MEDS: SUCRALFATE 1 GM/10 ML UNIT DOSE CUPS PO SCH ×4 (09:24→21:35)
[2020-09-20] MEDS: NEBIVOLOL 10 MG TABLET (FP) PO SCH (09:24)
[2020-09-20] MEDS: POTASSIUM CHLORIDE TABS 20 MEQ TABLET.ER (FP) PO SCH (09:24)
[2020-09-20] MEDS: FERROUS SO4 325 MG TABLET (FP) PO SCH (09:24)
[2020-09-20] MEDS: methylPREDNISolone NA SUCC 40 MG/1 ML VIAL IVPUSH SCH (09:24)
[2020-09-20] MEDS: DICYCLOMINE HCL 10 MG CAPSULE PO SCH ×2 (09:24→21:38)
[2020-09-20] MEDS: PANTOPRAZOLE SODIUM 40 MG VIAL IVPUSH SCH ×2 (09:24→21:35)
[2020-09-20] MEDS: APIXABAN 5 MG TABLET PO SCH ×2 (09:25→21:35)
[2020-09-20] MEDS ORDERED: IRON SUCROSE INJECTION 300 MG in SODIUM CHLORIDE 235 ML IVPB ONE (09:55)
[2020-09-20 10:01] LABS: ANISOCYTOSIS 2+; MACROCYTOSIS 2+; PLATELET ESTIMATE INCREASED
[2020-09-21] MEDS: VANCOMYCIN 250 MG/5 ML ORAL SOLUTION PO SCH ×3 (00:57→12:03)
[2020-09-21] MEDS: SIMETHICONE 80 MG TAB.CHEW (FP) PO SCH ×5 (00:57→23:31)
[2020-09-21 08:48] LABS: BASO % 0.4 % (0-2.0); EOS % 0.9 % (0-4.5); HEMATOCRIT 24.3 % (35.4-49); HEMOGLOBIN 7.7 GM/dL (11.7-16.9); LYMPH % 12.2 % (8-40); MCH 23.7 pg (25.7-33.7); MCHC 31.5 g/dl (32.0-35.9); MEAN CELL VOLUME 75.3 fl (80-96); MEAN PLT VOLUME 7.7 fl (7.5-11.1); MONO % 10.5 % (3.8-10.2); PLATELET COUNT 643 K/MM3 (134-434); RBC 3.23 M/mm3 (4.00-5.60); RDW 30.6 % (11.9-15.9)
[2020-09-21 09:02] LABS: POTASSIUM 4.7 mmol/L (3.5-5.1)
[2020-09-21 09:04] LABS: CALCIUM 8.6 mg/dL (8.5-10.1)
[2020-09-21 09:05] LABS: ALBUMIN 2.2 g/dl (3.4-5.0); BLOOD UREA NITROGEN 21.9 mg/dL (7-18)
[2020-09-21 09:08] LABS: CREATININE 1.2 mg/dL (0.55-1.3)
[2020-09-21 09:10] LABS: BILIRUBIN,TOTAL 0.2 mg/dL (0.2-1); TOT PROT 5.3 g/dl (6.4-8.2)
[2020-09-21] MEDS ORDERED: PT OWN MED DRAWER 7, Y5N ONE (09:18)
[2020-09-21] MEDS: POTASSIUM CHLORIDE TABS 20 MEQ TABLET.ER (FP) PO SCH (09:24)
[2020-09-21] MEDS: SUCRALFATE 1 GM/10 ML UNIT DOSE CUPS PO SCH ×4 (09:25→21:40)
[2020-09-21] MEDS: PANTOPRAZOLE SODIUM 40 MG VIAL IVPUSH SCH ×2 (09:25→21:41)
[2020-09-21] MEDS: FERROUS SO4 325 MG TABLET (FP) PO SCH (09:25)
[2020-09-21] MEDS: methylPREDNISolone NA SUCC 40 MG/1 ML VIAL IVPUSH SCH (09:25)
[2020-09-21] MEDS: DICYCLOMINE HCL 10 MG CAPSULE PO SCH ×2 (09:26→21:40)
[2020-09-21] MEDS: NEBIVOLOL 10 MG TABLET (FP) PO SCH (09:26)
[2020-09-21] MEDS: APIXABAN 5 MG TABLET PO SCH ×2 (09:30→21:40)
[2020-09-21 11:19] LABS: ANISOCYTOSIS 1+; MACROCYTOSIS 1+; PLATELET ESTIMATE INCREASED
[2020-09-21] MEDS ORDERED: metroNIDAZOLE 500 MG TABLET PO SCH (14:00)
[2020-09-21 14:58] VITALS: BMI 37.7
[2020-09-21] MEDS: metroNIDAZOLE 250 MG TABLET PO SCH ×2 (15:11→21:41)
[2020-09-22] MEDS: SIMETHICONE 80 MG TAB.CHEW (FP) PO SCH ×2 (06:28→12:33)
[2020-09-22] MEDS: metroNIDAZOLE 250 MG TABLET PO SCH ×2 (06:28→13:42)
[2020-09-22] MEDS ORDERED: PT OWN MED DRAWER 7, Y5N ONE (09:19)
[2020-09-22] MEDS: DICYCLOMINE HCL 10 MG CAPSULE PO SCH (09:46)
[2020-09-22] MEDS: SUCRALFATE 1 GM/10 ML UNIT DOSE CUPS PO SCH ×2 (09:46→13:42)
[2020-09-22] MEDS: NEBIVOLOL 10 MG TABLET (FP) PO SCH (09:46)
[2020-09-22] MEDS: methylPREDNISolone NA SUCC 40 MG/1 ML VIAL IVPUSH SCH (09:47)
[2020-09-22] MEDS: PANTOPRAZOLE SODIUM 40 MG VIAL IVPUSH SCH (09:47)
[2020-09-22] MEDS: POTASSIUM CHLORIDE TABS 20 MEQ TABLET.ER (FP) PO SCH (09:47)
[2020-09-22] MEDS: FERROUS SO4 325 MG TABLET (FP) PO SCH (09:47)
[2020-09-22] MEDS: APIXABAN 5 MG TABLET PO SCH (09:52)
[2020-09-22 12:52] LABS: BASO % 0.4 % (0-2.0); EOS % 1.3 % (0-4.5); HEMATOCRIT 26.4 % (35.4-49); HEMOGLOBIN 8.3 GM/dL (11.7-16.9); LYMPH % 9.4 % (8-40); MCHC 31.4 g/dl (32.0-35.9); MEAN CELL VOLUME 76.4 fl (80-96); MEAN PLT VOLUME 7.4 fl (7.5-11.1); MONO % 6.3 % (3.8-10.2); NEUT % 82.6 % (42.8-82.8); PLATELET COUNT 707 K/MM3 (134-434); RBC 3.46 M/mm3 (4.00-5.60); RDW 31.7 % (11.9-15.9); WHITE BLOOD COUNT 8.7 K/mm3 (4.0-10.0)
[2020-09-22 13:30] LABS: ANISOCYTOSIS 3+; MACROCYTOSIS 2+; OVALOCYTE 1+; PLATELET ESTIMATE INCREASED
[2020-09-22 15:38] VITALS: BP 124/76; PULSE 79; TEMP 98.3
[2020-09-25] MEDS ORDERED: APIXABAN 5 MG TABLET PO SCH (10:00)
== END 2020-09-22 17:57 | disposition home or self-care (01) | DRG 392 ==
LOC: JER 11:54 → JERBED 16:17 → J5S 19:52
PROVIDERS: ADMIT Family Medicine; ATTEND Family Medicine
PROC: 0DBE8ZX Excision of Large Intestine, Via Natural or Artificial Opening Endoscopic, Diagnostic (ICD-10-PCS; principal; 2020-09-15 13:00)
DX: A09 Infectious gastroenteritis and colitis, unspecified (principal); N17.9 Acute kidney failure, unspecified; D62 Acute posthemorrhagic anemia; D68.9 Coagulation defect, unspecified; I10 Essential (primary) hypertension; K44.9 Diaphragmatic hernia without obstruction or gangrene; N28.1 Cyst of kidney, acquired; E66.9 Obesity, unspecified; Z68.38 Body mass index [BMI] 38.0-38.9, adult; R16.0 Hepatomegaly, not elsewhere classified; E88.09 Other disorders of plasma-protein metabolism, not elsewhere classified; D50.0 Iron deficiency anemia secondary to blood loss (chronic); I80.8 Phlebitis and thrombophlebitis of other sites; R79.1 Abnormal coagulation profile; E87.6 Hypokalemia; R93.5 Abnormal findings on diagnostic imaging of other abdominal regions, including retroperitoneum
CPT/HCPCS: 36415; 71045-TC-FY; 71250-TC; 74174-TC; 74177-TC; 80048; 80053; 81003; 82272; 82607; 82728; 83540; 83550; 83615; 83735; 84100; 84443; 85025; 85384; 85610; 85730; 86140; 86769; 87040; 87045; 87046; 87086; 87177; 87186; 87207; 87209; 87324; 87328; 87329; 87425; 87449; 87798; 87804; 88305-TC; 93005; 93010; 93971; 99285-25; C9803; G0008; J1439; J1644; J1756; Q2036; U0003

== ENCOUNTER 2022-02-02 10:31 | Emergency (ER) | payer BC ==
[2022-02-02 10:45] VITALS: TEMP 98.9; BMI 41.3
[2022-02-02 12:27] VITALS: BP 166/111; PULSE 82
== END 2022-02-02 12:47 | disposition home or self-care (01) ==
LOC: FER 10:31
DX: I10 Essential (primary) hypertension (principal)
CPT/HCPCS: 99282-25

== ENCOUNTER 2023-03-19 14:02 | Emergency (ER) | payer BC ==
[2023-03-19 14:11] VITALS: BP 145/95; PULSE 57; RESP 18; TEMP 98.1; BMI 35.4
[2023-03-19] MEDS ORDERED: predniSONE 20 MG TABLET (UD) PO ONE (14:26)
[2023-03-19] MEDS ORDERED: predniSONE 20 MG TABLET (UD) ONE (14:31)
== END 2023-03-19 14:37 | disposition home or self-care (01) ==
LOC: FER 14:02
DX: L50.0 Allergic urticaria (principal)
CPT/HCPCS: 99283-25